=== PATIENT | female | born 1960 | race Hispanic/Latino ===

== ENCOUNTER 2018-10-22 08:37 | Outpatient (CLI) | payer MEDICARE | END 2018-10-22 08:38 | disposition home or self-care (01) | LOC: RAD 08:37 ==

== ENCOUNTER 2018-10-22 14:07 | Emergency (ER) | payer MEDICARE ==
[2018-10-22 14:28] VITALS: BMI 21.9
[2018-10-22 14:31] VITALS: TEMP 98.1
--- NOTE | 2018-10-22 14:41 | ED PDOC ---
Arrival/HPI - General Chief Complaint: Abdominal Pain Time Seen by Provider: 10/22/18 14:22 Historian: Patient - History of Present Illness Narrative History of Present Illness (Text): 10/22/18 15:05 58 year old female, with a past medical history of cholecystitis, arthritis, and neuropathy in feet, who presents to the emergency department sent by Dr. Zelaya for possible surgery for gallstones. Patient reports shooting abdo stephanie pain and vomiting for the past two months, and states she thought she had a heartburn. She reports she had an ultrasound done this morning, which showed gallbladder inflammation and possible gallstones, prompting Dr. Zelaya to send her to the emergency department today. She reports she has not seen a GI doctor. Patient reports pain is 6/10 presently. Patient denies any fevers, shortness of breath, chills, diarrhea, headaches, dizziness, back pain, or any other somatic complaints. PCP: Dr. Zelaya Time/Duration: > month Symptom Onset: Gradual Symptom Course: Unchanged Activities at Onset: Light Context: Home Past Medical History - Provider Review Nursing Documentation Reviewed: Yes - Infectious Disease Hx of Infectious Diseases: None - Musculoskeletal/Rheumatological Hx Back Pain: Yes - Psychiatric Hx Substance Use: No - Surgical History Other/Comment: Metal plate in neck - Anesthesia Hx Anesthesia: Yes Hx Anesthesia Reactions: No Hx Malignant Hyperthermia: No Family/Social History - Physician Review Nursing Documentation Reviewed: Yes Family/Social History: Unknown Family HX Smoking Status: Never Smoked Hx Alcohol Use: No Hx Substance Use: No Allergies/Home Meds Allergies/Adverse Reactions: Allergies No Known Allergies Allergy (Verified 10/22/18 14:28) Review of Systems - Physician Review All systems were reviewed & negative as marked: Yes - Review of Systems Constitutional: absent: Fevers Respiratory: absent: Cough Cardiovascular: absent: Chest Pain Gastrointestinal: Abdominal Pain, Vomiting. absent: Nausea Neurological: absent: Headache, Dizziness Physical Exam Vital Signs Reviewed: Yes Vital Signs Temp Pulse Resp BP Pulse Ox 10/22/18 14:30 98.1 F 95 H 18 153/85 H 99 Temperature: Afebrile Blood Pressure: Normal Pulse: Regular Respiratory Rate: Normal Appearance: Positive for: Well-Appearing, Non-Toxic, Comfortable Pain Distress: None Mental Status: Positive for: Alert and Oriented X 3 - Systems Exam Head: Present: Atraumatic, Normocephalic Pupils: Present: PERRL Extroacular Muscles: Present: EOMI Conjunctiva: Present: Normal Mouth: Present: Moist Mucous Membranes Neck: Present: Normal Range of Motion Respiratory/Chest: Present: Clear to Auscultation, Good Air Exchange. No: Respiratory Distress, Accessory Muscle Use, Wheezes Cardiovascular: Present: Regular Rate and Rhythm, Normal S1, S2. No: Murmurs Abdomen: Present: Other (Reproducible right upper quadrant pain.). No: Tenderness, Distention, Peritoneal Signs Back: Present: Normal Inspection Upper Extremity: Present: Normal Inspection. No: Cyanosis, Edema Lower Extremity: Present: Normal Inspection. No: Edema Neurological: Present: GCS=15, Speech Normal Skin: Present: Warm, Dry, Normal Color. No: Rashes Psychiatric: Present: Alert, Oriented x 3, Normal Insight, Normal Concentration Medical Decision Making ED Course and Treatment: 10/22/18 14:40 Impression: 58 year old female presents to the emergency department sent by Dr. Zelaya for possible surgery for gallstones. Plan: -- Labs -- Urinalysis -- Chest X-ray -- Iv fluids -- Type and screen -- Reassess and disposition Prior Visits: Notes and results from previous visits were reviewed. Progress Notes: 10/22/18 16:08 Surgery residents at the bedside explaining to patient need for surgery and possibility of the procedure being performed on Thursday. Patient states she does not want to wait and will sign out AMA and return on Thursday. Consent form for AMA signed with risks explained and understood. - Lab Interpretations Lab Results: 10/22/18 15:21 10/22/18 15:21 Lab Results 10/22/18 15:21: Sodium 139, Potassium 4.1, Chloride 102, Carbon Dioxide 29, Anion Gap 12, BUN 6 L, Creatinine 0.5 L, Est GFR ( Amer) > 60, Est GFR (Non-Af Amer) > 60, Random Glucose 109, Calcium 8.9, Total Bilirubin 1.0, AST 156 H, ALT 62 H, Alkaline Phosphatase 784 H, Troponin I < 0.01, Total Protein 6.5, Albumin 3.4, Globulin 3.1, Albumin/Globulin Ratio 1.1, Lipase 1003 H 10/22/18 15:21: PT 12.8 H, INR 1.15, APTT 38.4 H 10/22/18 15:21: WBC 13.1 H, RBC 4.02, Hgb 11.6 L, Hct 37.0, MCV 92.0, MCH 28.9, MCHC 31.4, RDW 16.8 H, Plt Count 504 H, MPV 10.6, Neut % (Auto) 79.2 H, Lymph % (Auto) 14.3 L, [place] % (Auto) 4.2, Eos % (Auto) 2.1, Baso % (Auto) 0.2, Lymph # (Auto) 1.9, [place] # (Auto) 0.6, Eos # (Auto) 0.3, Baso # (Auto) 0.03, Absolute Neuts (auto) 10.37 H 10/22/18 15:13: Blood Type O POSITIVE, Antibody Screen Negative, BBK History Checked No verified bt I have reviewed the lab results: Yes - EKG Interpretation EKG Interpretation (Text): 10/22/18 15:52 EKG reviewed, shows: Normal sinus rhythm at [address] abnormalities. No T wave inversions Interpreted by ED Physician: Yes - Scribe Statement The provider has reviewed the documentation as recorded by the Jonnyibsagrario Elmore All medical record entries made by the Renata were at my direction and personally dictated by me. I have reviewed the chart and agree that the record accurately reflects my personal performance of the history, physical exam, medical decision making, and the department course for this patient. I have also personally directed, reviewed, and agree with the discharge instructions and d isposition. Disposition/Present on Arrival - Present on Arrival Any Indicators Present on Arrival: No History of DVT/PE: No History of Uncontrolled Diabetes: No Urinary Catheter: No History of Decub. Ulcer: No History Surgical Site Infection Following: None - Disposition Have Diagnosis and Disposition been Completed?: Yes Diagnosis: Cholecystitis Disposition: AGAINST MEDICAL ADVICE Disposition Time: 16:00 Condition: GOOD Forms: [employer] (Swedish)
[2018-10-22 15:26] LABS: BASO # 0.03 K/mm3 (0.0-2.0); BASO % 0.2 % (0.0-3.0); EOS # 0.3 (0.0-0.7); EOS % 2.1 % (1.5-5.0); HEMOGLOBIN 11.6 g/dL (12.0-16.0); LYMPH # 1.9 (1.2-3.4); LYMPH % 14.3 % (22.0-35.0); MEAN CORPUSCULAR HEMOGLOBIN 28.9 pg (25.0-35.0); MEAN CORPUSCULAR HGB CONC 31.4 g/dl (31.0-37.0); MEAN PLATELET VOLUME 10.6 fl (7.0-11.0); MONO # 0.6 (0.1-0.6); MONO % 4.2 % (1.0-6.0); RBC 4.02 10^6/uL (3.5-6.1); RED CELL DISTRIBUTION WIDTH 16.8 % (11.5-14.5); WHITE BLOOD COUNT 13.1 10^3/uL (4.5-11.0)
[2018-10-22 15:35] LABS: INR 1.15; PARTIAL THROMBOPLASTIN TIME 38.4 Seconds (26.9-38.3); PROTHROMBIN TIME 12.8 SECONDS (9.4-12.5)
--- NOTE | 2018-10-22 15:35 | RAD ---
Date of service: 10/22/2018 HISTORY: pre op COMPARISON: No prior. TECHNIQUE: 1 view obtained. FINDINGS: LUNGS: No active pulmonary disease. PLEURA: No significant pleural effusion identified, no pneumothorax apparent. CARDIOVASCULAR: No aortic atherosclerotic calcification present. Normal cardiac size. No pulmonary vascular congestion. OSSEOUS STRUCTURES: No significant abnormalities. VISUALIZED UPPER ABDOMEN: Normal. OTHER FINDINGS: None. IMPRESSION: No active disease.
[2018-10-22 15:38] LABS: ALB/GLOB RATIO 1.1 (1.1-1.8); ALBUMIN 3.4 g/dL (3.0-4.8); ALT/SGPT 62 U/L (7-56); AST/SGOT 156 U/L (14-36); BLOOD UREA NITROGEN 6 mg/dL (7-21); CALCIUM 8.9 mg/dL (8.4-10.5); GFR NON-AFRICAN AMERICAN > 60; LIPASE 1003 U/L (23-300)
[2018-10-22 15:55] LABS: TROPONIN I < 0.01 ng/mL
[2018-10-22 16:06] VITALS: BP 155/73; PULSE 75; RESP 16; O2SAT 98
--- NOTE | 2018-10-22 16:12 | CP.PCM.CON ---
History of Present Illness - History of Present Illness History of Present Illness: SURGICAL CONSULT- DR DYER SERVICE 58 year old female, with a past medical history of cholecystitis, arthritis, and neuropathy in feet, who presents to the emergency department sent by Dr. Zelaya for possible surgery for gallstones. Patient reports shooting abdominal pain radiating to the back and vomiting for the past two months, and states she also suffered from heartburn and poor appetite . She reports taking pepcid and pantoprazole but has not had any relief. She also tried a 4x a day powder packet, does not know name, found no relief. Pt reports she lost about 30lbs over the last 2 months due to the frequent vomiting and poor appetite. Pt says her PMD Dr. Zelaya had her have an ultrasound done this morning, which showed gallbladder inflammation and possible gallstones. She denies ever having previous abdominal surgeries or having any past follow up with GI. US = Multiple gallstones and sludge. Focal tenderness on exam. There thickening of the gallbladder wall and hyperemia. Consistent with cholecystitis The common duct measures between 14 and 20 mm in diameter. Several large stones are in the common duct the largest measuring 1.7 cm ROS: Pos+ Abd pain RUQ, vomiting, weight loss, back pain, Neg- fevers, shortness of breath, chills, diarrhea, headaches, dizziness, blood in stool/vomit/urine, greasy/fatty/malodorous stools PMHx: above PSx: neck disc sx SocHx: 30 pack year, smokes marijuana occasionally, denies ETOH FH: denies Allergies: denies Review of Systems - Review of Systems All systems: reviewed and no additional remarkable complaints except ( PER HPI) Past Patient History - Infectious Disease Hx of Infectious Diseases: None - Past Social History Smoking Status: Never Smoked - MUSCULOSKELETAL/RHEUMATOLOGICAL Hx Back Pain: Yes - PSYCHIATRIC Hx Substance Use: No - SURGICAL HISTORY Other/Comment: Metal plate in neck - ANESTHESIA Hx Anesthesia: Yes Hx Anesthesia Reactions: No Hx Malignant Hyperthermia: No Meds Allergies/Adverse Reactions: Allergies Allergy/AdvReac Type Severity Reaction Status Date / Time No Known Allergies Allergy Verified 10/22/18 14:28 Physical Exam - Constitutional Appears: Non-toxic, No Acute Distress - Head Exam Head Exam: ATRAUMATIC, NORMOCEPHALIC - Eye Exam Eye Exam: EOMI, Normal appearance. absent: Scleral icterus Pupil Exam: NORMAL ACCOMODATION - ENT Exam ENT Exam: Mucous Membranes Moist - Respiratory Exam Respiratory Exam: Clear to Auscultation Bilateral, NORMAL BREATHING PATTERN - Cardiovascular Exam Cardiovascular Exam: RRR, +S1, +S2 - GI/Abdominal Exam GI & Abdominal Exam: Soft, Tenderness (RUQ, upon light palpation, positive herron's). absent: Distended, Firm, Organomegaly, Rebound - Back Exam Back exam: absent: CVA tenderness (L), CVA tenderness (R) - Neurological Exam Neurological exam: Alert, CN II-XII Intact, Oriented x3 - Psychiatric Exam Psychiatric exam: Normal Affect, Normal Mood - Skin Skin Exam: Normal Color, Warm Results - Vital Signs Recent Vital Signs: Last Vital Signs Temp 98.1 F 10/22/18 14:30 Pulse 95 H 10/22/18 14:30 Resp 18 10/22/18 14:30 BP 153/85 H 10/22/18 14:30 Pulse Ox 99 10/22/18 14:30 - Labs Result Diagrams: 10/22/18 15:21 10/22/18 15:21 Labs: Laboratory Results - last 24 hr 10/22/18 10/22/18 10/22/18 15:21 15:21 15:21 WBC 13.1 H RBC 4.02 Hgb 11.6 L Hct 37.0 MCV 92.0 MCH 28.9 MCHC 31.4 RDW 16.8 H Plt Count 504 H MPV 10.6 Neut % (Auto) 79.2 H Lymph % (Auto) 14.3 L [place] % (Auto) 4.2 Eos % (Auto) 2.1 Baso % (Auto) 0.2 Lymph # (Auto) 1.9 [place] # (Auto) 0.6 Eos # (Auto) 0.3 Baso # (Auto) 0.03 Absolute Neuts (auto) 10.37 H PT 12.8 H INR 1.15 APTT 38.4 H Sodium 139 Potassium 4.1 Chloride 102 Carbon Dioxide 29 Anion Gap 12 BUN 6 L Creatinine 0.5 L Est GFR ( Amer) > 60 Est GFR (Non-Af Amer) > 60 Random Glucose 109 Calcium 8.9 Total Bilirubin 1.0 AST 156 H ALT 62 H Alkaline Phosphatase 784 H Troponin I < 0.01 Total Protein 6.5 Albumin 3.4 Globulin 3.1 Albumin/Globulin Ratio 1.1 Lipase 1003 H Assessment & Plan - Assessment and Plan (Free Text) Assessment: 58F with cholecystitis and choledocholithiasis as seen on abdominal US who was evaluated for surgical intervention Plan: US shows sludge and CBD dilation of 14-20mm, stones in common bile duct as well as elevated LFTs and lipase - recommending ERCP and GI consult as well as cholecystectomy once pancreatitis resolved and CBD stone removed Pt should be admitted for IV Antibiotics and IV Fluids resuscitation Pt requesting to leave AMA, stating that she feels fine. Risks explained including cholecystitis, cholangitis, sepsis and . Pt states that she does not want to stay over the weekend and will return on Thursday. CK PGY1 case dw Dr Dyer
--- NOTE | 2018-10-23 15:07 | CARD ---
APPROVED REPORT Date of service: 10/22/2018 EKG Measurement Heart [id number] <Conclusion> Normal sinus rhythm Normal ECG
== END 2018-10-22 16:04 | disposition left against medical advice (07) ==
LOC: ED 14:07
DX: K80.40 Calculus of bile duct with cholecystitis, unspecified, without obstruction (principal)